=== PATIENT | female | born 1995 | race Caucasian/White ===

== ENCOUNTER 2016-11-30 13:35 | Observation (INO) | payer OTHER ==
[~2016-11-30] VITALS: Ht 160 cm; Wt 96.2 kg
[2016-11-30 14:26] VITALS: BP 101/59
[2016-11-30] MEDS ORDERED: PREN1TAB80 PO (14:28)
[2016-11-30] MEDS ORDERED: RINGERS SOLUTION,LACTATED 1,000 ML IV SCH (14:45)
[2016-11-30] MEDS: RINGERS SOLUTION,LACTATED 1,000 ML IV SCH ×2 (16:08→22:32)
[2016-11-30] MEDS ORDERED: NIFEdipine 10 MG CAPSULE PO ONE (16:15)
[2016-11-30] MEDS ORDERED: MORPHINE SULFATE 4 MG/ML SYRINGE IVP ONE (16:30)
[2016-11-30] MEDS: NIFEdipine 10 MG CAPSULE PO SCH (22:32)
[2016-12-01] MEDS: RINGERS SOLUTION,LACTATED 1,000 ML IV SCH (04:39)
[2016-12-01] MEDS: NIFEdipine 10 MG CAPSULE PO SCH (05:42)
[2016-12-01] MEDS ORDERED: ACETAMINOPHEN 500 MG TABLET PO ONE (06:45)
== END 2016-12-01 09:55 | disposition home or self-care (01) ==
LOC: 4S 13:35
PROVIDERS: ADMIT Obstetrics & Gynecology; ATTEND Obstetrics & Gynecology
DX: O42.913 Preterm premature rupture of membranes, unspecified as to length of time between rupture and onset of labor, third trimester (principal); O36.8130 Decreased fetal movements, third trimester, not applicable or unspecified; O13.3 Gestational [pregnancy-induced] hypertension without significant proteinuria, third trimester; Z3A.31 31 weeks gestation of pregnancy; O62.9 Abnormality of forces of labor, unspecified
CPT/HCPCS: 36415 ×2; 59025 ×2; 76811; 82731; 87210; 89060 ×2; 96361 ×2; 96374; G0378 ×2; J2270; J7120 ×2

== ENCOUNTER 2016-12-03 17:31 | Observation (INO) | payer OTHER ==
[~2016-12-03] VITALS: Ht 160 cm; Wt 96.2 kg
[~2016-12-03 17:31] MED LIST: PREN1TAB80 PO
[2016-12-03] MEDS ORDERED: RINGERS SOLUTION,LACTATED 1,000 ML IV ONE (19:45)
[2016-12-03] MEDS ORDERED: NIFEdipine 10 MG CAPSULE PO ONE (23:30)
== END 2016-12-04 01:10 | disposition home or self-care (01) ==
LOC: 4S 17:31
PROVIDERS: ADMIT Obstetrics & Gynecology; ATTEND Obstetrics & Gynecology
DX: O62.9 Abnormality of forces of labor, unspecified (principal); Z3A.32 32 weeks gestation of pregnancy
CPT/HCPCS: 59025; 96360; 96361; G0378 ×2; J7120

== ENCOUNTER 2017-01-14 21:34 | Inpatient (IN) | payer OTHER ==
[~2017-01-14] VITALS: Ht 160 cm; Wt 98.4 kg
[2017-01-14 22:02] VITALS: BP 118/59
[2017-01-14] MEDS ORDERED: INFLUENZA VIRUS VACCINE QVS 2016-17 (3YR+)/PF 60 MCG/0.5 ML SYRINGE IM ONE (23:00)
[2017-01-15] MEDS ORDERED: OXYTOCIN 30 UNITS/LACT RINGERS 500 ML IV ONE (01:37)
[2017-01-15] MEDS ORDERED: RINGERS SOLUTION,LACTATED 1,000 ML IV PRN (01:37)
[2017-01-15] MEDS ORDERED: OXYGEN THERAPY IH SCH (01:45)
[2017-01-15] MEDS ORDERED: CITRIC ACID/SODIUM CITRATE 30 ML SOLUTION UDCUP PO PRN (01:45)
[2017-01-15] MEDS ORDERED: METOCLOPRAMIDE HCL 5 MG/ML 2 ML VIAL IVP PRN (01:45)
[2017-01-15] MEDS: RINGERS SOLUTION,LACTATED 1,000 ML IV SCH ×2 (02:38→09:47)
[2017-01-15 02:44] LABS: BASOPHILS % (AUTO) 0.4 % (0.0-2.0); EOSINOPHILS % (AUTO) 0.4 % (1.0-6.0); HEMATOCRIT 36.1 % (36-46); HEMOGLOBIN 11.6 g/dL (12.0-16.0); LYMPHOCYTES % (AUTO) 24.8 % (22.0-44.0); MEAN CORPUSCULAR HGB CONC 32.2 G/dL (31.0-37.0); MEAN CORPUSCULAR VOLUME 87 fL (80-100); MONOCYTES # (AUTO) 0.8 K/uL (0.1-1.0); MONOCYTES % (AUTO) 6.5 % (2.0-9.0); NEUTROPHILS # (AUTO) 8.2 K/uL (1.8-7.7); NEUTROPHILS % (AUTO) 67.9 % (40.0-70.0); RED BLOOD CELL COUNT(AUTO) 4.14 MIL/uL (4.00-5.20)
[2017-01-15] MEDS ORDERED: OXYTOCIN 20 UNITS in RINGERS SOLUTION,LACTATED 1,000 ML IV ONE (07:45)
[2017-01-15] MEDS ORDERED: LIDOCAINE HCL/PF 1% 30 ML VIAL ONE (10:33)
[2017-01-15] MEDS ORDERED: BENZOCAINE 20%/MENTHOL 56 GM SPRAY CANISTER TP PRN (11:30)
[2017-01-15] MEDS ORDERED: SENNA/DOCUSATE SODIUM 187-50 MG TABLET PO PRN (11:30)
[2017-01-15] MEDS ORDERED: GLYCERIN/WITCH HAZEL LEAF 40 PADS JAR TP PRN (11:30)
[2017-01-15] MEDS ORDERED: MAGNESIUM HYDROXIDE SUSPENSION 30 ML UDCUP PO PRN (11:30)
[2017-01-15] MEDS ORDERED: LANOLIN 7 GM OINTMENT TP PRN (11:30)
[2017-01-15] MEDS ORDERED: ACETAMINOPHEN/CODEINE 300-30 MG TABLET PO PRN (11:30)
[2017-01-15] MEDS: IBUPROFEN 600 MG TABLET PO PRN ×2 (13:28→23:10)
[2017-01-15] MEDS ORDERED: RINGERS SOLUTION,LACTATED 1,000 ML IV SCH (14:39)
[2017-01-15] MEDS ORDERED: RINGERS SOLUTION,LACTATED 1,000 ML IV ONE (14:39)
[2017-01-15] MEDS ORDERED: LIDOCAINE HCL/PF 1% 30 ML VIAL INJ PRN (14:45)
[2017-01-16] MEDS ORDERED: IBUP-1547 PO (10:45)
[2017-01-16] MEDS ORDERED: DSS100 PO (10:45)
== END 2017-01-16 11:20 | disposition home or self-care (01) | DRG 560 ==
LOC: 4S 21:34 → OBSVTOIN 21:34
PROVIDERS: ADMIT Obstetrics & Gynecology; ATTEND Obstetrics & Gynecology
PROC: 10E0XZZ Delivery of Products of Conception, External Approach (ICD-10-PCS; principal; 2017-01-15)
PROC: 0W8NXZZ Division of Female Perineum, External Approach (ICD-10-PCS; 2017-01-15)
PROC: 0HQ9XZZ Repair Perineum Skin, External Approach (ICD-10-PCS; 2017-01-15)
DX: O70.0 First degree perineal laceration during delivery (principal); Z37.0 Single live birth; Z3A.38 38 weeks gestation of pregnancy
CPT/HCPCS: 90471; J2590; J3490; J7120